=== PATIENT | female | born 1960 | race Two or more races ===

== ENCOUNTER 2019-04-03 08:27 | Outpatient (CLI) | payer OTHER | END 2019-04-03 09:23 | disposition home or self-care (01) | LOC: NUCLEAR 08:27 | DX: K50.80 Crohn's disease of both small and large intestine without complications (principal); M60.9 Myositis, unspecified; M51.36 Other intervertebral disc degeneration, lumbar region; G62.89 Other specified polyneuropathies | CPT/HCPCS: 78315; A9503 ==